=== PATIENT | female | born 1975 | race Caucasian/White ===

== ENCOUNTER → 2023-01-24 | Day surgery (SDC) | payer OTHER ==
[~2023-01-24] MED LIST: ACETAMINOPHEN 1000 MG/100 ML 100 ML IV ONE; ATORVASTATIN CA20 MG PO; CEFTRIAXONE 1 GM VIAL ONE; CETIRIZINE HCL10 MG PO; DEXAMETHASONE SOD PHOS INJ 4 MG/ML SDV ONE; FUROSEMIDE40 MG PO; IOPAMIDOL 610MG/1ML 300 MG/ML VIAL IV ONE; LACTATED RINGER'S 1,000 ML ONE; LIDOCAINE HCL 2% LOCAL INJ 5 ML SDV VIAL INJ ONE; LOSARTAN POTASS25 MG PO; ONDANSETRON HCL INJ 2MG/ML 2ML 2 MG/ML VIAL ONE; PAROXETINE HCL20 MG PO; POTASSIUM CHLO20 ME1 PO; POVIDONE IODINE 0.05% 0.05 % ML PO ONE; PROPOFOL IV EMULSION 10 MG/ML 20 ML VIAL ONE; SEVOFLURANE INHAL SOLN 250 ML PEN BTL ONE; VERAPAMIL ER120 MG PO; VITAMIN D3 COM1 EACH PO; XYZAL5 MG
[2023-01-24 12:23] VITALS: BP 132/90; PULSE 70; RESP 18; O2SAT 99
== END | disposition home or self-care (01) ==
LOC: OR 10:34
PROVIDERS: ATTEND Urology
DX: N30.10 Interstitial cystitis (chronic) without hematuria (principal); N35.92 Unspecified urethral stricture, female; N81.10 Cystocele, unspecified; N36.41 Hypermobility of urethra; R35.1 Nocturia; G47.33 Obstructive sleep apnea (adult) (pediatric); I10 Essential (primary) hypertension; F41.9 Anxiety disorder, unspecified; Z91.041 Radiographic dye allergy status; Z01.810 Encounter for preprocedural cardiovascular examination; Z79.899 Other long term (current) drug therapy; Z68.44 Body mass index [BMI] 60.0-69.9, adult; Z84.1 Family history of disorders of kidney and ureter
CPT/HCPCS: 52260; 74420; 81025; 93005; C1758; C1769; J0131; J0696; J1100; J2001; J2405; J2704; J7121; Q9967